=== PATIENT | female | born 1970 | race Caucasian/White ===

== ENCOUNTER 2018-09-05 06:54 | Emergency (ER) | payer BC ==
[~2018-09-05] VITALS: Ht 170.2 cm; Wt 56.7 kg
[~2018-09-05 06:54] MED LIST: BIRTH CONTROL PILLS PO; LACT1CAP71 PO; OMEP20CA10 PO
[2018-09-05] MEDS ORDERED: TRAMADOL HCL 50 MG TABLET (07:10)
[2018-09-05] MEDS ORDERED: PANTOPRAZOLE SOD DR 40 MG TAB (07:10)
[2018-09-05] MEDS ORDERED: LIDOCAINE 2% (UROJET) 10 ML JELLY MM ONE ×2 (07:26→07:30)
--- NOTE | 2018-09-05 07:26 | NUR ---
PT IS IN ROOM #2B. DR LOMBARDO EVALUATED THE PT.
[2018-09-05 08:11] LABS: *BILIRUBIN,URIN NEGATIVE (NEGATIVE); *BLOOD, URINE NEGATIVE (NEGATIVE); *CLARITY,URINE CLEAR (CLEAR); *COLOR,URINE YELLOW (YELLOW); *KETONES,URINE NEGATIVE (NEGATIVE); *UROBILINOGEN,URINE 0.2 E.U./dl (NORMAL); BACTERIA,URINE FEW /HPF (NONE SEEN); LEUKOCYTE ESTERASE ,URINE NEGATIVE (NEGATIVE); NITRITE, URINE NEGATIVE (NEGATIVE); PH,URINE 7.5 (5.0-8.0); RBC,URINE NONE SEEN /HPF (0-3); UGLUCOSE NEGATIVE (NEGATIVE); WBC,URINE NONE SEEN /HPF (0-3)
[2018-09-05 08:12] LABS: *URINE HCG, QUAL NEGATIVE (NEGATIVE); SQUAMOUS EPITHELIAL CELL,UR FEW /HPF (NONE SEEN)
--- NOTE | 2018-09-05 08:43 | NUR ---
PT WAS D/C'd TO HOME. D/C INSTRUCTIONS GIVEN TO THE PT.
[2018-09-05 08:45] VITALS: BP 129/71
== END 2018-09-05 08:51 | disposition home or self-care (01) ==
LOC: ER 06:54
DX: R33.9 Retention of urine, unspecified (principal); K21.9 Gastro-esophageal reflux disease without esophagitis; Z88.0 Allergy status to penicillin; Z79.899 Other long term (current) drug therapy
CPT/HCPCS: 51702; 84703; 87086; A4663

== ENCOUNTER 2018-09-06 12:54 | Emergency (ER) | payer BC ==
[~2018-09-06] VITALS: Ht 170.2 cm; Wt 56.7 kg
[~2018-09-06 12:54] MED LIST changes: -LACT1CAP71 PO; -OMEP20CA10 PO; +PANTOPRAZOLE SOD DR 40 MG TAB; +TRAMADOL HCL 50 MG TABLET
--- NOTE | 2018-09-06 13:18 | NUR ---
PT IS IN ROOM #2A. DR LOMBARDO EVALUATED THE PT.
--- NOTE | 2018-09-06 13:39 | NUR ---
F/C WAS D/C'd ACCORDINNG TO PT's REQUEST AND DR LOMBARDO ORDER. PT TOLERATED TO PROCEDURE WITHOUT COMPLICATIONS. PT WAS ABLE TO URINATE AFTER PROCEDURE WITHOUT DIFFICULTY. PT WAS D/C'd TO HOME. D/C INSTRUCTIONS GIVEN TO THE PT.
[2018-09-06 13:42] VITALS: BP 133/75
== END 2018-09-06 13:43 | disposition home or self-care (01) ==
LOC: ER 12:54
DX: T83.031A Leakage of indwelling urethral catheter, initial encounter (principal); R33.9 Retention of urine, unspecified; K21.9 Gastro-esophageal reflux disease without esophagitis; Z88.0 Allergy status to penicillin; Z79.2 Long term (current) use of antibiotics; Z79.899 Other long term (current) drug therapy
CPT/HCPCS: A4663